=== PATIENT | male | born 1960 | race African-American/Black ===

== ENCOUNTER 2017-02-28 15:03 | Inpatient (IN) | payer MEDICARE, MEDICAID ==
--- NOTE | 2017-02-28 16:38 | ED ---
Psych HPI - General Chief Complaint: Psychiatric Symptoms Stated Complaint: Dr Ann/DARIAN Time Seen by Provider: 02/28/17 15:37 Source: patient, RN notes reviewed Mode of arrival: ambulatory - History of Present Illness Initial Comments: Patient is a 56-year-old male presents emergency room for psych evaluation. Patient states he has a history of bipolar disorder with psychosis and depression. Patient states he has not been taking his psych medications for the past month. Patient states over the past few weeks he's been very depressed. Patient states he's been having suicidal thoughts. Patient states he has been thinking of cutting his wrists or jumping off a bridge. Patient denies any medical issues. Patient denies headache, dizziness, chest pain, shortness of breath, nausea, vomiting, abdominal pain, fevers, chills. Patient denies alcohol use. Patient denies illicit drug use. Patient denies visual or auditory hallucinations. - Related Data Previous Rx's Medication Instructions Recorded Doxazosin [Cardura] 4 mg PO DAILY #7 tab 12/01/15 Allergies Allergy/AdvReac Type Severity Reaction Status Date / Time No Known Allergies Allergy Verified 02/28/17 16:03 Review of Systems ROS Statement: Those systems with pertinent positive or pertinent negative responses have been documented in the HPI. ROS Other: All systems not noted in ROS Statement are negative. Past Medical History Past Medical History: COPD, Prostate Disorder History of Any Multi-Drug Resistant Organisms: None Reported Past Surgical History: Hernia Repair, Orthopedic Surgery Past Anesthesia/Blood Transfusion Reactions: No Reported Reaction Past Psychological History: Anxiety, Bipolar, Depression, Schizoaffective Disorder Smoking Status: Current every day smoker Past Alcohol Use History: Abuse Past Drug Use History: Cocaine General Exam - General Exam Comments Initial Comments: Sitting in exam room, no acute distress. Limitations: no limitations General appearance: alert, in no apparent distress Head exam: Present: atraumatic, normocephalic, normal inspection Eye exam: Present: normal appearance ENT exam: Present: normal exam Neck exam: Present: normal inspection Respiratory exam: Present: normal lung sounds bilaterally. Absent: respiratory distress Cardiovascular Exam: Present: regular rate, normal rhythm, normal heart sounds Extremities exam: Present: normal inspection Back exam: Present: normal inspection Neurological exam: Present: alert, oriented X3, CN II-XII intact, normal gait Psychiatric exam: Present: normal affect, normal mood Skin exam: Present: warm, dry, intact, normal color. Absent: rash Course Vital Signs 02/28/17 15:24 Temperature 98.3 F Pulse Rate 81 Respiratory 16 Rate Blood Pressure 144/92 O2 Sat by Pulse 97 Oximetry Medical Decision Making - Medical Decision Making Patient is a 56-year-old male presents emergency room for psych evaluation. Patient medically cleared to be evaluated by psych at this time. Patient evaluated and meets admission criteria. - Lab Data Lab Results 02/28/17 Range/Units 16:24 Urine Opiates Screen Not Detected (NotDetected) Ur Oxycodone Screen Not Detected (NotDetected) Urine Methadone Screen Not Detected (NotDetected) Ur Propoxyphene Screen Not Detected (NotDetected) Ur Barbiturates Screen Not Detected (NotDetected) U Tricyclic Antidepress Not Detected (NotDetected) Ur Phencyclidine Scrn Not Detected (NotDetected) Ur Amphetamines Screen Not Detected (NotDetected) U Methamphetamines Scrn Not Detected (NotDetected) U Benzodiazepines Scrn Not Detected (NotDetected) Urine Cocaine Screen Detected H (NotDetected) U Marijuana (THC) Screen Not Detected (NotDetected) Disposition Clinical Impression: Depression, Suicidal ideation Disposition: TRANSFER TO PSYCH HOSP/UNIT Condition: Stable Referrals: Burke Wilks MD [Primary Care Provider] - 1-2 days Decision Date: 02/28/17
[2017-02-28] MEDS ORDERED: MAG HYDROX/AL HYDROX/SIMETH 30 ML CUP PO PRN (18:30)
[2017-02-28] MEDS ORDERED: ACETAMINOPHEN TAB 325 MG TAB PO PRN (18:30)
[2017-02-28] MEDS ORDERED: MAGNESIUM HYDROXIDE 2,400 MG/10 ML CUP PO PRN (18:30)
[2017-02-28] MEDS ORDERED: LORazepam 1 MG TAB PO PRN (18:30)
[2017-02-28] MEDS ORDERED: LORazepam 2 MG/ML SYRINGE IM PRN (18:32)
[2017-02-28 18:40] LABS: Appearance,Urine Clear (Clear); Bilirubin,Urine Negative (Negative); Glucose,Urine (UA) Negative (Negative); Ketones,Urine 1+ (Negative); Leukocyte Esterase,Urine Negative (Negative); Mucus,Urine Many /hpf; Nitrite,Urine Negative (Negative); PH, Urine 5.5 (5.0-8.0); Particle Count 9747; Protein,Urine 1+ (Negative); RBC,Urine 1 /hpf (0-5); Specific Gravity,Urine 1.027 (1.001-1.035); Sperm,Urine Occasional /hpf; Squamous Epithelial Cell,Urine <1 /hpf (0-4); UA Billing (MACRO vs. MICRO) MICRO; WBC,Urine 1 /hpf (0-5)
[2017-02-28] MEDS: NICOTINE 14MG/24HR PATCH TRANSDERM SCH (19:09)
[2017-03-01 09:00] LABS: Basophils % (A) 1 %; CHCM 33.1; Eosinophils # (A) 0.3 k/uL (0-0.7); Eosinophils % (A) 6 %; HCT 42.8 % (39.0-53.0); HDW 2.25; HGB 14.5 gm/dL (13.0-17.5); Luc # (Auto) 0.17; Luc % (Auto) 4; Lymphocytes % (A) 23 %; MCHC 33.9 g/dL (31.0-37.0); MCV 97.3 fL (80.0-100.0); Mean Platelet Volume 6.6; Monocytes # (A) 0.4 k/uL (0-1.0); Monocytes % (A) 10 %; Neutrophils # (A) 2.7 k/uL (1.3-7.7); Neutrophils % (A) 58 %; WBC 4.6 k/uL (3.8-10.6); WBC (Perox) 4.31
[2017-03-01] MEDS: NICOTINE 14MG/24HR PATCH TRANSDERM SCH (09:06)
[2017-03-01] MEDS: DOXAZOSIN 4 MG TAB PO SCH (09:07)
[2017-03-01 09:26] LABS: ALT 49 U/L (21-72); AST 42 U/L (17-59); Alkaline Phosphatase 50 U/L (38-126); Anion Gap 7 mmol/L; Blood Urea Nitrogen 18 mg/dL (9-20); Carbon Dioxide 29 mmol/L (22-30); Chloride 104 mmol/L (98-107); Glucose 128 mg/dL (74-99); Non-African American GFR(MDRD) >60 (>60 ml/min/1.73 sqM); Sodium 140 mmol/L (137-145); Total Bilirubin 2.2 mg/dL (0.2-1.3); Total Protein 6.5 g/dL (6.3-8.2)
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
[2017-03-01] MEDS: SERTRALINE 50 MG TAB PO SCH (13:41)
[2017-03-01 20:26] VITALS: BMI 22.1
[2017-03-01] MEDS: busPIRone HCl 5 MG TAB PO SCH (21:03)
[2017-03-02] MEDS: NICOTINE 14MG/24HR PATCH TRANSDERM SCH (07:56)
[2017-03-02] MEDS: SERTRALINE 50 MG TAB PO SCH (07:57)
[2017-03-02] MEDS: DOXAZOSIN 4 MG TAB PO SCH (07:57)
[2017-03-02] MEDS: busPIRone HCl 5 MG TAB PO SCH ×2 (07:57→21:22)
[2017-03-02 09:35] LABS: ALT 55 U/L (21-72); AST 36 U/L (17-59); Alkaline Phosphatase 53 U/L (38-126); Anion Gap 9 mmol/L; Blood Urea Nitrogen 14 mg/dL (9-20); Carbon Dioxide 27 mmol/L (22-30); Chloride 104 mmol/L (98-107); Glucose 158 mg/dL (74-99); Non-African American GFR(MDRD) >60 (>60 ml/min/1.73 sqM); Potassium 3.8 mmol/L (3.5-5.1); Sodium 140 mmol/L (137-145); Total Bilirubin 2.1 mg/dL (0.2-1.3); Total Protein 6.6 g/dL (6.3-8.2)
[2017-03-02] MEDS ORDERED: diphenhydrAMINE 25 MG CAP PO PRN (12:18)
--- NOTE | 2017-03-02 12:18 | P.PN ---
Progress Note - Text Interval History: Patient is a 56-year-old male who reports that he is "not as cloudy and greatly" this morning as he was on the day of admission. He reports that he is still not sleeping well due to worrying about the future and past problems. He states that he also is up most of the night itching due to his eczema. He reports that he had suicidal thoughts this morning when he woke up in regard to his future but states that he is no longer feeling that way. He reports that he does not want to . he reports that he continues to feel sleepy during the day due to not sleeping well at night. He had no complaints of any other symptoms and no side effects from his medications. Mental Status: Appearance/Attitude: Patient was in bed and dressed in his hospital gown and he was cooperative. Behavior: Patient exhibited no agitation and denied feeling anxious. Speech/Language: Speech was of normal volume and rhythm and he was spontaneous and coherent. Thought Process: His thought processes were goal-directed without evidence of circumstantiality or tangentiality. Thought Content: He denied any auditory or visual hallucinations and denied any paranoid ideation. He reports at night he ruminates and worries about his future and the past. He denies any thought insertion or thought broadcasting. Suicidal/Homicidal Ideation: Patient stated when he awoke this morning he had a suicidal thought but is no longer feeling that way and did not have any suicidal thoughts throughout yesterday evening. Patient reports that he is worried about the future and thought about suicide as an easy way out, he reports he does not want to . Patient denied any current homicidal ideation. Sensorium/Cognition: Patient is alert and oriented to person, place, and time. His memory is grossly intact. Fund of information is adequate. Mood/Affect: Patient reports feeling less depressed today stating "I am not as cloudy and gaytan". His affect was appropriate. Insight/Judgement: Patient's insight and judgment are fair. Assessment: Patient continues to remain sleepy due to poor sleep at night and spend some time in bed, he reports feeling slightly better today on the medication and did not verbalize any complaints of anxiety. He did did have suicidal thoughts this morning but states they are much less frequent than on admission. He was encouraged to continue to attend groups and participate in them. He reported no side effects from his medication. He is to have a repeat comprehensive metabolic panel per his primary care doctor today to assess his bilirubin and fasting glucose. Patient is reporting itching from his eczema which does keep him up at night and states he has used Benadryl in the past as well as topical steroids. Repeat labs show a continued elevation of his bilirubin and glucose. Plan: Patient will continue on suicide precautions, continue Zoloft 50 mg daily and BuSpar 7.5 mg twice a day to target his depression and anxiety. Patient will continue to be encouraged to attend groups and participate in them , he was also encouraged to stay out of bed during the day to improve his sleep at night. Will prescribe Benadryl 25mg qhs prn for itching due to eczyma. His primary care physcian will be contacted regarding his eczyma and lab results.
[2017-03-02] MEDS: hydrOXYzine HCL 25 MG TAB PO SCH ×2 (19:04→21:21)
[2017-03-02] MEDS: TRIAMCINOLONE ACET 0.1% OINTMENT 15 GM TUBE TOPICAL SCH ×2 (19:08→22:37)
[2017-03-03] MEDS: busPIRone HCl 5 MG TAB PO SCH ×2 (09:31→20:22)
[2017-03-03] MEDS: SERTRALINE 25 MG TAB PO SCH (09:32)
[2017-03-03] MEDS: SERTRALINE 50 MG TAB PO SCH ×2 (09:32→09:41)
[2017-03-03] MEDS: DOXAZOSIN 4 MG TAB PO SCH (09:33)
[2017-03-03] MEDS: TRIAMCINOLONE ACET 0.1% OINTMENT 15 GM TUBE TOPICAL SCH ×4 (09:33→20:22)
[2017-03-03] MEDS: hydrOXYzine HCL 25 MG TAB PO SCH ×4 (09:33→20:22)
[2017-03-03] MEDS: NICOTINE 14MG/24HR PATCH TRANSDERM SCH (09:33)
--- NOTE | 2017-03-03 10:32 | P.PN ---
Progress Note - Text Interval History: Patient is a 56-year-old male who was admitted for depression , suicidal ideation and relapse in his use of alcohol and cocaine. Patient reports today that he slept better due to receiving medication for his eczema and itching. Patient states that he continues to worry about his future and continues to feel like a failure in all areas. He states that he has occasional suicidal ideation but is not having any plans associated with those thoughts. He states he feels suicidal when he thinks about the future and feels like a failure. He did report that he continues to feel less gaytan and less depressed. He voiced no symptoms of anxiety. He stated that he napped yesterday but slept better last night. Patient states he is attending some groups and states they have been helpful. Patient reports that he is less depressed, "less gaytan" then he was on admission. He reported no side effects from any of his medications. Mental Status: Appearance/Attitude: Patient is alert, less tired appearing and dressed in a hospital gown, he was cooperative and made good eye contact. Behavior: Patient exhibited no psychomotor agitation or retardation and was able to sit calmly during the interview. Speech/Language: Patient's speech was spontaneous and coherent. Thought Process: Patient was goal-directed. Thought Content: He denies any auditory or visual hallucinations, no delusions were elicited, he continues to ruminate about his future and states that he feels like a failure in all areas. Suicidal/Homicidal Ideation: Patient reports that he has occasional suicidal thoughts but no plans and states that the suicidal thoughts are less frequent and less intense. He denies any homicidal ideation. Sensorium/Cognition: Patient is alert and oriented to person, place, and time. His memory is grossly intact. Mood/Affect: Patient's mood remains depressed, he reports feeling "less gaytan" denies any anxiety symptoms and his affect was appropriate. Insight/Judgement: Patient's insight and judgment are intact. Assessment: Patient continues to report feeling less depressed however continues to have occasional suicidal ideation he states that he is not having any plans and that the thoughts are not as intense. His affect was much brighter today and he appeared less tired looking after sleeping better last evening when he received Atarax and Kenalog ointment for his eczema and itching. He is not reporting any symptoms of anxiety and feels that the BuSpar has been working effectively for him. Patient continues to have concerns and worries about his future, negative thoughts about his past and at times feels like a failure in all areas. Plan: Patient was begun on Atarax 100 mg 4 times a day to target his itching and Kenalog ointment 4 times a day for his eczema and he reports good results. Benadryl was discontinued due to his being started on Atarax. Patient's Zoloft will be increased to 75 mg daily to target his depression his prior out patient dose was 150 mg daily and BuSpar 7.5 mg twice a day will be continued to target his anxiety symptoms. Patient was encouraged to continue to participate in all groups and activities and we also discussed his concerns about the future. He was unable to identify specific issues. He was encouraged to not nap during the day to improve his sleep at night. He continues to require inpatient hospitalization to stabilize his depression and absence of suicidal ideation.
--- NOTE | 2017-03-03 12:28 | CONS ---
CHIEF COMPLAINT: Major depression. HISTORY OF PRESENT ILLNESS: This is the first known psych admission for this 56 -year-old . He had been a regular patient in the practice until he disappeared in September of 2016. He had been being treated for hypertension, bipolar depression, hyperlipidemia, vitamin D deficiency. He also has a history of alcoholism. He came into the office on the day of admission having lost weight and was severely depressed. He has not been taking any medication. He was agreeable to being placed on inpatient status and presented himself to the emergency room where he was cleared to enter the psych unit. REVIEW OF SYSTEMS: He has had no recent headaches, neurologic problems, chest pain, cough, shortness of breath, abdominal pain, nausea, vomiting, diarrhea, melena, hematochezia, jaundice, hematuria, frequency, urgency, renal disease, diabetes, etc. Past medical history, family history and personal and social histories are unremarkable. He is not allergic to anything. He has not been taking any medication. He has had psych admissions in the past and as recently as 2007 and 2008. Surgically, he has had a herniorrhaphy and procedure on the right wrist. He does smoke and he is a recovering alcoholic. PHYSICAL EXAM: Blood pressure is 134/88. Pulse is 104. Respirations are 16. He is afebrile. GENERAL: He appeared to be very depressed and malnourished. Skin is dry and lymph nodes are not enlarged. Head, ears, eyes, nose, mouth and throat were unremarkable. The neck veins are not distended. Thyroid was not enlargement. Chest is clear. Cardiac exam is normal. ABDOMEN: Soft, nontender. EXTREMITIES: Normal. IMPRESSION: 1. Major depression. 2. ( ). 3. Chronic obstructive pulmonary disease. 4. Bipolar disorder. PLAN: He wants to be checked for STDs and this will be orders. OLLIE
--- NOTE | 2017-03-03 13:09 | PN ---
CHIEF COMPLAINT: Itching in the lower extremities. HISTORY OF PRESENT ILLNESS: This gentleman is having a lot of itching with the rash on the lower extremities. He has had a lifetime history of eczema. PHYSICAL EXAM: Chest is clear. Cardiac exam is normal. ABDOMEN: Soft, nontender. He has extensive scaly, dry, maculopapular dermatitis on both lower legs consistent with eczema. IMPRESSION: Eczema. PLAN: Atarax 100 mg q.i.d. for itching along with hydrocortisone cream 2.5% four times a day. MTDD
[2017-03-03 21:36] LABS: Hepatitis B Surface Ag Index 0.05
[2017-03-03 21:41] LABS: Hepatitis B Core IgM Index 0.01
[2017-03-03 21:53] LABS: Hepatitis C Virus IgG Ab Negative (Negative); Hepatitis C Virus IgG Index 0.05
[2017-03-04] MEDS: busPIRone HCl 5 MG TAB PO SCH ×2 (09:13→21:05)
[2017-03-04] MEDS: DOXAZOSIN 4 MG TAB PO SCH (09:15)
[2017-03-04] MEDS: SERTRALINE 25 MG TAB PO SCH (09:16)
[2017-03-04] MEDS: NICOTINE 14MG/24HR PATCH TRANSDERM SCH (09:16)
[2017-03-04] MEDS: SERTRALINE 50 MG TAB PO SCH (09:16)
[2017-03-04] MEDS: hydrOXYzine HCL 25 MG TAB PO SCH (09:38)
[2017-03-04] MEDS: TRIAMCINOLONE ACET 0.1% OINTMENT 15 GM TUBE TOPICAL SCH ×4 (11:03→21:06)
--- NOTE | 2017-03-04 12:13 | P.PN ---
Progress Note - Text Interval History: This is a 56-year-old male who was admitted for depression, suicidal ideation and relapse in his use of alcohol and cocaine. Patient reports today that he continues to feel less gaytan less cloudy and less depressed. He reports that his suicidal ideation is only occasionally now without any plans or or wanting to . Patient reports that his sleep is much better with the Atarax for the itching as well as the cream for his eczema. He reports that he attended all but one group yesterday feeling more alert and awake. Patient states that he continues to ruminate at night about problems, his future but this has decreased in intensity. He reports attending the groups has been helpful. He denied having any anxiety complaints and reported no complaints of side effects from the medication. He did complain of taking the Atarax on a scheduled basis was making him too sleepy during the day. He reported he is hopeful to maintain his sobriety upon discharge. Mental Status: Appearance/Attitude: Patient was dressed in a hospital gown. He appeared much brighter and alert today and was cooperative. He made good eye contact. Behavior: Patient did not exhibit any psychomotor agitation or retardation. Speech/Language: Patient's speech was spontaneous and coherent. Thought Process: Patient was goal directed and reported less ruminating about worries at night. Thought Content: Patient denied any auditory or visual hallucinations and no delusional or paranoid ideation was elicited. Suicidal/Homicidal Ideation: Patient states that he is having occasional suicidal thought however not having any plans or intent to act. Stating that he does not want to . He denies any homicidal ideation. Sensorium/Cognition: He is alert and oriented to person, place, and time. His memory is grossly intact. Mood/Affect: He states he's feeling "less gaytan and the cloud is lifting"and he is more hopeful about the future, affect was appropriate. Insight/Judgement: Insight and judgment are fair. Assessment: Patient reports that he is continuing to feel less depressed and is beginning to feel more hopeful about his future. Patient is sleeping better with the control of his itching from his eczema and is more alert and awake during the day. He has been able to attend groups and finds them beneficial. The suicidal thoughts are only occasionally and he reports that he had no thoughts of how to plan suicide yesterday and states that he does not want to . He has not reported any complaints of anxiety. Patient reported feeling drowsy during the day with the scheduled Atarax dosage, no other side effect complaints. I also reviewed patient's hepatitis screens which were all negative as well as a negative syphilis test. His HIV testing is pending as well as tests for herpes. Plan: Patient and I discussed increasing his Zoloft to 100 mg every morning beginning tomorrow, his prior dose was 150 mg per day. Patient has been tolerating the medication well and has shown improvement in his depression is decreasing his suicidal ideation. We will continue with BuSpar 7.5 mg twice a day as the patient is not reporting any anxiety and the current dose is adequate in controlling his anxiety. We will decrease his Atarax 100 mg 4 times a day to when necessary itching. Patient and I discussed discharge plans and he will be referred to community mental health for both psychiatric treatment as well as substance use treatment , he states he will confirm his housing plans for discharge. Patient will remain in the hospital to further stabilize his depression, decrease his suicidal ideation.
[2017-03-04] MEDS: hydrOXYzine HCL 25 MG TAB PO PRN ×2 (12:51→21:06)
--- NOTE | 2017-03-05 08:12 | P.PN ---
Progress Note - Text Interval history: Patient is seen in cross coverage today for Dr. Liz. He reports that he slept about 4-1/2 hours last night. He feels like the sleep is improving. His appetite seems to be better. He is currently on Zoloft and BuSpar. He does not seem to voice any adverse side effects. Zoloft has recently been increased. He is attending some groups. Mental status exam: He is alert and cooperative with the interview. His speech is fluent, not rapid or pressured. Thought processes are organized. His mood overall seems to be showing some improvement. He denies today any current thoughts of harm to self or others. He relates that he is dealing with some suicidal ideations when he was admitted. He does not seem to show any active evidence of psychosis or any agitation. Plan: Patient will be maintained on current psychotropic medications. We will monitor for any medication side effects. We'll continue to cover this patient for Dr. Liz through the weekend.
[2017-03-05] MEDS: busPIRone HCl 5 MG TAB PO SCH ×2 (11:55→20:15)
[2017-03-05] MEDS: NICOTINE 14MG/24HR PATCH TRANSDERM SCH (11:56)
[2017-03-05] MEDS: SERTRALINE 100 MG TAB PO SCH (11:56)
[2017-03-05] MEDS: DOXAZOSIN 4 MG TAB PO SCH (11:56)
[2017-03-05] MEDS: TRIAMCINOLONE ACET 0.1% OINTMENT 15 GM TUBE TOPICAL SCH ×4 (11:57→20:15)
[2017-03-05] MEDS: hydrOXYzine HCL 25 MG TAB PO PRN (22:13)
[2017-03-06] MEDS: SERTRALINE 100 MG TAB PO SCH (08:27)
[2017-03-06] MEDS: DOXAZOSIN 4 MG TAB PO SCH (08:27)
[2017-03-06] MEDS: NICOTINE 14MG/24HR PATCH TRANSDERM SCH (08:27)
[2017-03-06] MEDS: busPIRone HCl 5 MG TAB PO SCH ×2 (08:27→21:04)
--- NOTE | 2017-03-06 08:39 | P.PN ---
Progress Note - Text Interval history: Patient is seen in cross coverage today for Dr. Liz. He reports that he slept about 5 hours last night. He feels like his sleep continues to do better. He is eating. Reports that his mood is overall better. He seems to be tolerating the psychotropic medication regimen well. He does describe that he had a fleeting thought of suicide yesterday, reports that he feels safe on the unit. He describes worsening eczema. Mental status exam: He is alert and cooperative with the interview. Speech is fluent, not rapid or pressured. Thought processes are organized. He denies any thoughts of harm to self or others. No evidence of psychosis or agitation. His mood overall is improved. Plan: Patient be maintained on current psychotropic medication regimen. We will continue to monitor regarding any thoughts of suicide. Dr. Liz will resume care this patient starting tomorrow. We'll ask for medical follow-up regarding worsening eczema.
[2017-03-06] MEDS: TRIAMCINOLONE ACET 0.1% OINTMENT 15 GM TUBE TOPICAL SCH ×4 (10:03→21:25)
[2017-03-06] MEDS: methylPREDNISolone 4 MG TAB TAPER PO SCH (10:03)
[2017-03-06] MEDS: hydrOXYzine HCL 25 MG TAB PO PRN ×2 (12:33→21:06)
[2017-03-07 07:12] VITALS: TEMP 98.3
[2017-03-07] MEDS: methylPREDNISolone 4 MG TAB TAPER PO SCH (08:31)
[2017-03-07] MEDS: DOXAZOSIN 4 MG TAB PO SCH (08:31)
[2017-03-07] MEDS: TRIAMCINOLONE ACET 0.1% OINTMENT 15 GM TUBE TOPICAL SCH ×2 (08:32→13:53)
[2017-03-07] MEDS: SERTRALINE 100 MG TAB PO SCH (08:32)
[2017-03-07] MEDS: NICOTINE 14MG/24HR PATCH TRANSDERM SCH (08:32)
[2017-03-07] MEDS: busPIRone HCl 5 MG TAB PO SCH (08:32)
[2017-03-07] MEDS: hydrOXYzine HCL 25 MG TAB PO PRN (09:42)
[2017-03-07 10:09] VITALS: BP 130/77; PULSE 76; RESP 18
--- NOTE | 2017-03-07 13:27 | P.DS ---
Providers Date of admission: 02/28/17 18:29 Expected date of discharge: 03/07/17 Attending physician: Soumya Liz MD Consults: 02/28/17 18:30 Consult Physician Routine Consulting Provider: Burke Wilks Consult Reason/Comments: follow up H & P Do you want consulting provider notified?: Yes Primary care physician: Burke Wilks Hospital Course: Discharge Diagnoses: Recurrent major depression, severe without psychosis Alcohol use disorder, mild Cocaine use disorder, mild Generalized anxiety disorder Reason for Admission:[ Patient is a 56-year-old male who reported that he has not been taking his medications for the last 2-3 months and had also began using alcohol and cocaine again. He reported increasing symptoms of depression and he had been having suicidal thoughts over the last several weeks and the day prior to admission he called the crisis line and went into see his primary care physician. At that time the patient voiced that he had been contemplating jumping in the river to commit suicide and was trying to think of any easier way. Patient was sent to the emergency room and was admitted on a voluntary basis.] Hospital Course: Patient was admitted and was placed on suicide precautions, group and activity therapy, and was restarted on his prior medications. Patient was also seen by his primary care doctor and was continued on his medications for hypertension as well as starting Atarax when necessary for itching due to eczema and Kenalog ointment. Patient responded to the medication and reported decreasing suicidal thoughts, once his eczema and itching were better controlled his sleep improved and he was not sleeping during the day and able to participate and attend groups and activities on the unit. His Zoloft was slowly increased from 50 mg to his last dose of 100 mg a day. His BuSpar had also been restarted at 7-1/2 mg twice a day and due to the patient not reporting anxiety symptoms was not further increased. Patient never expressed any psychotic symptomatology and no antipsychotic medications were restarted. Patient reported feeling less and less depressed, which she described as a cloudy and gaytan feeling and reported no further suicidal thoughts with plans or intent. Patient was also eager to remain sober, and reported no urges to drink or use drugs while in the hospital. Patient on Zoloft 100 mg daily reported his depression was improved, is not having crying spells and no further suicidal thoughts. Patient was continued on his hypertensive medication, Cardura. His bilirubin was elevated again during this admission which had been further worked up at his last admission and was felt to be of benign origin. Patient was also started on Kenalog ointment for his eczema in the day prior to discharge was placed on a steroid taper for his continued itching from eczema. Patient hepatitis screen, sexually transmitted disease screen screens were also negative. Discharge Mental Status:Appearance/Attitude: Patient was neatly and appropriately dressed, and his attitude was cooperative. Behavior: He exhibited no psychomotor retardation or agitation. Speech/Language: Patient's speech was of normal volume and rhythm he was spontaneous and coherent. Thought Process: He was goal-directed without evidence of circumstantial or tangential thought. Thought Content: Patient denied any auditory or visual hallucinations and no tactile hallucinations and no delusions or paranoid ideation were elicited. Patient reported he was still somewhat embarrassed by his relapse with alcohol and cocaine however he was more positive in his outlook. Patient reported that he was no longer feeling depressed and hopeless. Suicidal/Homicidal Ideation: Patient denied any current suicidal or homicidal ideation. Sensorium/Cognition: Patient was alert and oriented to person, place, and time and his memory was grossly intact. Mood/Affect: Patient's mood was euthymic he reported not feeling depressed and did not report any anxiety symptoms, his affect was appropriate. Insight/Judgement: Patient's insight into his alcohol and substance use was good and his judgment was intact. Laboratory Last Values WBC 4.6 k/uL (3.8-10.6) 03/01/17 08:33 RBC 4.40 m/uL (4.30-5.90) 03/01/17 08:33 Hgb 14.5 gm/dL (13.0-17.5) 03/01/17 08:33 Hct 42.8 % (39.0-53.0) 03/01/17 08:33 MCV 97.3 fL (80.0-100.0) 03/01/17 08:33 MCH 33.0 pg (25.0-35.0) 03/01/17 08:33 MCHC 33.9 g/dL (31.0-37.0) 03/01/17 08:33 RDW 12.0 % (11.5-15.5) 03/01/17 08:33 Plt Count 248 k/uL (150-450) 03/01/17 08:33 Neutrophils % 58 % 03/01/17 08:33 Lymphocytes % 23 % 03/01/17 08:33 Monocytes % 10 % 03/01/17 08:33 Eosinophils % 6 % 03/01/17 08:33 Basophils % 1 % 03/01/17 08:33 Neutrophils # 2.7 k/uL (1.3-7.7) 03/01/17 08:33 Lymphocytes # 1.0 k/uL (1.0-4.8) 03/01/17 08:33 Monocytes # 0.4 k/uL (0-1.0) 03/01/17 08:33 Eosinophils # 0.3 k/uL (0-0.7) 03/01/17 08:33 Basophils # 0.0 k/uL (0-0.2) 03/01/17 08:33 Sodium 140 mmol/L (137-145) 03/02/17 08:49 Potassium 3.8 mmol/L (3.5-5.1) 03/02/17 08:49 Chloride 104 mmol/L (98-107) 03/02/17 08:49 Carbon Dioxide 27 mmol/L (22-30) 03/02/17 08:49 Anion Gap 9 mmol/L 03/02/17 08:49 BUN 14 mg/dL (9-20) 03/02/17 08:49 Creatinine 0.93 mg/dL (0.66-1.25) 03/02/17 08:49 Est GFR (MDRD) Af Amer >60 (>60 ml/min/1.73 sqM) 03/02/17 08:49 Est GFR (MDRD) Non-Af >60 (>60 ml/min/1.73 sqM) 03/02/17 08:49 Glucose 158 mg/dL (74-99) H 03/02/17 08:49 Calcium 9.0 mg/dL (8.4-10.2) 03/02/17 08:49 Total Bilirubin 2.1 mg/dL (0.2-1.3) H 03/02/17 08:49 AST 36 U/L (17-59) 03/02/17 08:49 ALT 55 U/L (21-72) 03/02/17 08:49 Alkaline Phosphatase 53 U/L (38-126) 03/02/17 08:49 Total Protein 6.6 g/dL (6.3-8.2) 03/02/17 08:49 Albumin 4.0 g/dL (3.5-5.0) 03/02/17 08:49 TSH 0.590 mIU/L (0.465-4.680) 03/01/17 08:33 Urine Color Yellow 02/28/17 16:24 Urine Appearance Clear (Clear) 02/28/17 16:24 Urine pH 5.5 (5.0-8.0) 02/28/17 16:24 Ur Specific [place] 1.027 (1.001-1.035) 02/28/17 16:24 Urine Protein 1+ (Negative) H 02/28/17 16:24 Urine Glucose (UA) Negative (Negative) 02/28/17 16:24 Urine Ketones 1+ (Negative) H 02/28/17 16:24 Urine Blood Trace (Negative) H 02/28/17 16:24 Urine Nitrite Negative (Negative) 02/28/17 16:24 Urine Bilirubin Negative (Negative) 02/28/17 16:24 Urine Urobilinogen 6.0 mg/dL (<2.0) 02/28/17 16:24 Ur Leukocyte Esterase Negative (Negative) 02/28/17 16:24 Urine RBC 1 /hpf (0-5) 02/28/17 16:24 Urine WBC 1 /hpf (0-5) 02/28/17 16:24 Ur Squamous Epith Cells <1 /hpf (0-4) 02/28/17 16:24 Urine Mucus Many /hpf (None) H 02/28/17 16:24 Urine Sperm Occasional /hpf (None) H 02/28/17 16:24 Urine Opiates Screen Not Detected (NotDetected) 02/28/17 16:24 Ur Oxycodone Screen Not Detected (NotDetected) 02/28/17 16:24 Urine Methadone Screen Not Detected (NotDetected) 02/28/17 16:24 Ur Propoxyphene Screen Not Detected (NotDetected) 02/28/17 16:24 Ur Barbiturates Screen Not Detected (NotDetected) 02/28/17 16:24 U Tricyclic Antidepress Not Detected (NotDetected) 02/28/17 16:24 Ur Phencyclidine Scrn Not Detected (NotDetected) 02/28/17 16:24 Ur Amphetamines Screen Not Detected (NotDetected) 02/28/17 16:24 U Methamphetamines Scrn Not Detected (NotDetected) 02/28/17 16:24 U Benzodiazepines Scrn Not Detected (NotDetected) 02/28/17 16:24 Urine Cocaine Screen Detected (NotDetected) H 02/28/17 16:24 U Marijuana (THC) Screen Not Detected (NotDetected) 02/28/17 16:24 Treponema pallidum Ab Non-Reactive (Non-Reactive) 03/02/17 08:49 Chlamydia Source Urine 03/03/17 16:15 Chlamydia DNA (PCR) Negative (Neg,Equiv) 03/03/17 16:15 Hepatitis A IgM Ab NEGATIVE 03/02/17 08:49 Hep Bs Antigen Negative 03/02/17 08:49 Hep B Core IgM Ab NEGATIVE 03/02/17 08:49 Hep C IgG Ab Negative (Negative) 03/02/17 08:49 HSV I&II IgM Ab 0.19 INDEX (<=0.90) 03/04/17 07:52 N. gonorrhoeae Source Urine 03/03/17 16:15 N.gonorrhoeae DNA Probe Negative (Neg,Equiv) 03/03/17 16:15 Allergies No Known Allergies Allergy (Verified 02/28/17 16:03) Risk Assessment:Patient's risk for suicidal behavior is low as long as patient is compliant with medication and remain sober. Discharge Plan: Patient will be discharged to return to his prior living situation a 3/4 house, he has an intake set up to return to [facility] on March 14 at 3 PM with [facility]. He will be discharged on Zoloft 100 mg daily, BuSpar 7.5 mg twice a day, Cardura 4 mg daily, Atarax 100 mg 4 times a day as needed for itching, Kenalog ointment 4 times a day, a continued taper of prednisone, Habitrol 14 mg patch 1 per day. Patient will follow-up with his primary care physician for referral to dermatology regarding his eczema. Also follow-up with his primary care doctor regarding his hypertension. Patient Condition at Discharge: Stable Plan - Discharge Summary New Discharge Prescriptions: New busPIRone HCl [Buspar] 15 mg PO BID #14 tab hydrOXYzine HCL [Atarax] 100 mg PO QID PRN #14 tab PRN Reason: Itching methylPREDNISolone [Medrol] 4 mg PO DAILY #15 tab Nicotine 14Mg/24Hr Patch [Habitrol] 1 patch TRANSDERM DAILY #14 patch Sertraline [Zoloft] 100 mg PO DAILY #14 tab Triamcinolone 0.1% Ointment [Kenalog 0.1% Ointment] 1 applic TOPICAL QID #1 dose Continue Doxazosin [Cardura] 4 mg PO DAILY #7 tab Discharge Medication List Doxazosin [Cardura] 4 mg PO DAILY #7 tab 12/01/15 [Rx] Nicotine 14Mg/24Hr Patch [Habitrol] 1 patch TRANSDERM DAILY #14 patch 03/07/17 [ Rx] Sertraline [Zoloft] 100 mg PO DAILY #14 tab 03/07/17 [Rx] Triamcinolone 0.1% Ointment [Kenalog 0.1% Ointment] 1 applic TOPICAL QID #1 dose 03/07/17 [Rx] busPIRone HCl [Buspar] 15 mg PO BID #14 tab 03/07/17 [Rx] hydrOXYzine HCL [Atarax] 100 mg PO QID PRN #14 tab 03/07/17 [Rx] methylPREDNISolone [Medrol] 4 mg PO DAILY #15 tab 03/07/17 [Rx] Follow up Appointment(s)/Referral(s): [facility] [Outside] - 03/14/17 3:00 pm (Intake 03/14/17 at 3:00 pm with Maureen) Burke Wilks MD [Primary Care Provider] - 1-2 days Discharge Disposition: HOME SELF-CARE
== END 2017-03-07 15:26 | disposition home or self-care (01) | DRG 885 ==
LOC: EC 15:03 → 3MHU 18:29
PROVIDERS: ADMIT Psychiatry & Neurology Psychiatry; ATTEND Psychiatry & Neurology Psychiatry
DX: F33.2 Major depressive disorder, recurrent severe without psychotic features (principal); R17 Unspecified jaundice; R45.851 Suicidal ideations; I10 Essential (primary) hypertension; F14.10 Cocaine abuse, uncomplicated; E78.5 Hyperlipidemia, unspecified; F17.200 Nicotine dependence, unspecified, uncomplicated; F41.1 Generalized anxiety disorder; J44.9 Chronic obstructive pulmonary disease, unspecified; L30.9 Dermatitis, unspecified; N40.0 Benign prostatic hyperplasia without lower urinary tract symptoms; Z79.899 Other long term (current) drug therapy; Z81.8 Family history of other mental and behavioral disorders; Z91.14 Patient's other noncompliance with medication regimen; Z91.5 Personal history of self-harm
CPT/HCPCS: 80053; 80074; 80306; 81001; 82075; 84443; 85025; 86694; 86780; 87491; 87535; 87591; 99285

== ENCOUNTER 2017-03-20 18:51 | Emergency (ER) | payer MEDICARE, OTHER ==
[2017-03-20 19:15] VITALS: BP 126/76; PULSE 85; RESP 20; TEMP 99.1
[2017-03-20] MEDS ORDERED: CEPHALEXIN 500MG STARTER PACK 4 CAP BTL PO STA (20:15)
--- NOTE | 2017-03-20 20:18 | XR ---
EXAMINATION TYPE: XR hand complete RT DATE OF EXAM: 03/20/2017 COMPARISON: NONE HISTORY: 56-year-old male with a pain TECHNIQUE: 3 views FINDINGS: Osteopenia without acute fracture, subluxation, or dislocation. Marked bony irregularity and sclerosis at the distal radial metaphysis with radial and volar angulati on. There is irregularity of the cortical bone along the dorsal aspect and adjacent soft tissue swell ing. IMPRESSION: Chronic-appearing angulation deformity of the distal radial metaphysis. There is associated sclerosis and cortical irregularity especially along the dorsal aspect with adjacent soft tissue swelling. Und erlying chronic osteomyelitis not excluded. Correlate with patient's history.
--- NOTE | 2017-03-20 20:21 | ED ---
Skin/Abscess/FB HPI - General Chief complaint: Skin/Abscess/Foreign Body Stated complaint: hand infection Time Seen by Provider: 03/20/17 19:40 Source: patient, RN notes reviewed, old records reviewed Mode of arrival: ambulatory Limitations: no limitations - History of Present Illness Initial comments: This is a 56-year-old male presenting to the emergency Department chief complaint of abscess that formed over the right hand between the second and third fingers. Patient reports that he has a history of severe eczema and has had a biopsy done by the decision science analyst. Patient reports that he did not bump his hand or anything that could've caused the initial infection that he is aware of. He reports that over the past 2-3 days the swelling is became worse over the dorsum of the hand. He reports that there is been some pus drainage between the second and third knuckles. He denies any fever. He reports he has full range of motion of the hand. He states is tender to touch whenever they tried again removed pus from the area. - Related Data Previous Rx's Medication Instructions Recorded Doxazosin [Cardura] 4 mg PO DAILY #7 tab 12/01/15 Nicotine 14Mg/24Hr Patch [Habitrol] 1 patch TRANSDERM DAILY #14 patch 03/07/17 Sertraline [Zoloft] 100 mg PO DAILY #14 tab 03/07/17 Triamcinolone 0.1% Ointment 1 applic TOPICAL QID #1 dose 03/07/17 [Kenalog 0.1% Ointment] busPIRone HCl [Buspar] 15 mg PO BID #14 tab 03/07/17 hydrOXYzine HCL [Atarax] 100 mg PO QID PRN #14 tab 03/07/17 methylPREDNISolone [Medrol] 4 mg PO DAILY #15 tab 03/07/17 Cephalexin [Keflex] 500 mg PO Q8HR #21 cap 03/20/17 Allergies Allergy/AdvReac Type Severity Reaction Status Date / Time No Known Allergies Allergy Verified 03/20/17 19:15 Review of Systems ROS Statement: Those systems with pertinent positive or pertinent negative responses have been documented in the HPI. ROS Other: All systems not noted in ROS Statement are negative. Past Medical History Past Medical History: COPD, Prostate Disorder History of Any Multi-Drug Resistant Organisms: None Reported Past Surgical History: Hernia Repair, Orthopedic Surgery Past Anesthesia/Blood Transfusion Reactions: No Reported Reaction Past Psychological History: Anxiety, Bipolar, Depression, Schizoaffective Disorder Smoking Status: Current every day smoker Past Alcohol Use History: Heavy Past Drug Use History: Cocaine, Marijuana - Past Family History Father Additional Family Medical History / Comment(s): Pt rports that his father had a history of mental illness. General Exam - General Exam Comments Initial Comments: This is a 56-year-old male. No acute distress. Limitations: no limitations General appearance: alert, in no apparent distress Head exam: Present: atraumatic, normocephalic, normal inspection Eye exam: Present: normal appearance, PERRL, EOMI. Absent: scleral icterus, conjunctival injection, periorbital swelling ENT exam: Present: normal exam, mucous membranes moist Neck exam: Present: normal inspection. Absent: tenderness, meningismus, lymphadenopathy Respiratory exam: Present: normal lung sounds bilaterally. Absent: respiratory distress, wheezes, rales, rhonchi, stridor Cardiovascular Exam: Present: regular rate, normal rhythm, normal heart sounds. Absent: systolic murmur, diastolic murmur, rubs, gallop, clicks GI/Abdominal exam: Present: soft, normal bowel sounds. Absent: distended, tenderness, guarding, rebound, rigid Extremities exam: Present: normal inspection, full ROM, normal capillary refill. Absent: tenderness, pedal edema, joint swelling, calf tenderness Back exam: Present: normal inspection Neurological exam: Present: alert, oriented X3, CN II-XII intact Psychiatric exam: Present: normal affect, normal mood Skin exam: Present: warm, dry, intact, normal color, rash (Patient has severe eczema over entire body. Patient is currently being treated by decision science analyst. Patient has a 1 cm abscess over right first knuckle. ) Course Vital Signs 03/20/17 19:12 Temperature 99.1 F Pulse Rate 85 Respiratory 20 Rate Blood Pressure 126/76 O2 Sat by Pulse 99 Oximetry Medical Decision Making - Medical Decision Making 56-year-old male comes in with a chief complaint of a right hand abscess for the past 3 days. Patient has severe eczema and is currently being treated by decision science analyst. Patient hand xray obtained, he does have noted deformity to right ulnar bone. This is from an accident 15 years ago when he fell off a roof. Dorsum of hand shows no osteomyelitis. Patient absesss was pressed and pus removed. Patient started on keflex. Discussed follow up with PCP and dermatology. Return parameters discussed. Disposition Clinical Impression: Abscess of right hand Disposition: HOME SELF-CARE Condition: Good Instructions: Abscess (ED) Additional Instructions: Patient advised to apply warm compresses over the area. Take all the antibiotics. Recommended falling up with primary care physician as well as orthopedic physician. Return to the emergency department if any alarming signs or symptoms occur. Prescriptions: Cephalexin [Keflex] 500 mg PO Q8HR #21 cap Referrals: Burke Wilks MD [Primary Care Provider] - 1-2 days Time of Disposition: 20:15
== END 2017-03-20 20:36 | disposition home or self-care (01) ==
LOC: EC 18:51
DX: L02.511 Cutaneous abscess of right hand (principal); F17.200 Nicotine dependence, unspecified, uncomplicated
CPT/HCPCS: 87070; 87077; 87186; 87205; 99284